=== PATIENT | female | born 1955 | race Caucasian/White ===

== ENCOUNTER 2019-05-24 06:37 | Day surgery (SDC) | payer MEDICAID ==
[2019-05-24] MEDS ORDERED: ONDANSETRON 4 MG/2 ML INJ IV PRN (06:56)
[2019-05-24] MEDS ORDERED: fentaNYL 100 MCG/2 ML INJ IV PRN (06:56)
--- NOTE | 2019-05-24 06:57 | Anesthesia Day of Surgery ---
Anesthesia Day of Surgery - Day of Surgery Patient Examined: Yes Patient H&P Reviewed: Yes Patient is NPO: Yes
[2019-05-24] MEDS ORDERED: SODIUM CHLORIDE 0.9% 500 ML 500 ML IV SCH (07:00)
[2019-05-24] MEDS ORDERED: LACTATED RINGERS 1,000 ML IV SCH (07:00)
--- NOTE | 2019-05-24 07:02 | Anesthesia Consultation ---
Anesthesia Consult and Med Hx Date of service: 05/24/19 - Airway Anesthetic Teeth Evaluation: Good - Pulmonary Exam CTA: Yes - Cardiac Exam Cardiac Exam: RRR - Pre-Operative Health Status ASA Pre-Surgery Classification: ASA3 Proposed Anesthetic Plan: MAC (recent lap courtney and sedation with angiogram with no anesthesia problem. No CP No SOB) - Pulmonary Hx Sleep Apnea: Yes (Pt denies but morbid obesity) - Cardiovascular System Hx Hypertension: Yes Hx Peripheral Vascular Disease: Yes - Endocrine Hx Non-Insulin Dependent Diabetes: Yes
[2019-05-24 07:19] LABS: Hematocrit 40.2 % (30.3-42.9); Hemoglobin 13.5 gm/dl (10.1-14.3); Mean Corpuscular HGB Conc 34 % (30-34); Mean Corpuscular Volume 83 fl (79-97); Platelet Count 432 K/mm3 (140-440); Red Blood Count 4.84 M/mm3 (3.65-5.03); Red Cell Distribution Width 14.9 % (13.2-15.2)
[2019-05-24 07:30] LABS: BUN/Creatinine Ratio 34; Blood Urea Nitrogen 17 mg/dL (7-17); Calcium 10.5 mg/dL (8.4-10.2); Hemolysis Index 10
[2019-05-24 08:04] LABS: INR 1.24 (0.87-1.13)
[2019-05-24 08:05] LABS: Partial Thromboplastin Time 34.9 Sec. (24.2-36.6)
[2019-05-24] MEDS ORDERED: KETAMINE/STERILE WATER 50 MG/ML SYRINGE ONE ×2 (08:14→10:37)
[2019-05-24] MEDS ORDERED: SODIUM CHLORIDE 0.9% 100 ML ONE (08:14)
[2019-05-24] MEDS ORDERED: MIDAZOLAM 2 MG/2 ML INJ ONE (08:15)
[2019-05-24] MEDS ORDERED: LIDOCAINE (2%) 20 MG/1 ML VIAL 20 ML MDV INFILTRATI ONE (08:27)
[2019-05-24] MEDS ORDERED: HEPARIN/NS 5000 UNIT/500ML 1,500 ML IR ONE (08:27)
[2019-05-24] MEDS ORDERED: ceFAZolin/Water 2 GM/20 ML 2 GM/20 ML SYRINGE IV ONE (08:44)
[2019-05-24] MEDS: HEPARIN 10,000 UNITS/10 ML VIAL ONE ×3 (09:04→10:03)
[2019-05-24] MEDS ORDERED: HEPARIN/NS 5000 UNIT/500ML 500 ML IR ONE (09:23)
[2019-05-24] MEDS ORDERED: SODIUM CHLORIDE 0.9% 1000 ML 1,000 ML ONE ×2 (09:32→10:26)
[2019-05-24] MEDS ORDERED: ALTEPLASE 2 MG INJ ONE (10:26)
[2019-05-24] MEDS ORDERED: NITROGLYCERIN SYRINGE 3 ML ONE (10:59)
[2019-05-24] MEDS ORDERED: PHENYLEPHRINE/NS 1,000 MCG/10 ML SYRINGE (OR USE) IV ONE (11:00)
[2019-05-24] MEDS ORDERED: hydrALAZINE 20 MG/1 ML INJ ONE (11:00)
--- NOTE | 2019-05-24 11:42 | Short Stay Summary ---
Short Stay Documentation Date of service: 05/24/19 - History H&P: obtained from office (Left toe ischemia) Past Medical History: diabetes, hyperlipidemia Past Surgical History: cholecystectomy - Allergies and Medications Current Medications: Allergies No Known Allergies Allergy (Unverified 05/24/19 06:38) Home Medications Medication Instructions Recorded Confirmed Last Taken Type Apixaban [Eliquis] 10 mg PO BID 05/24/19 05/24/19 05/23/19 History 10 mg RX: glipiZIDE [Glucotrol] 10 mg PO BID 05/24/19 05/24/19 05/23/19 History 10 mg RX: hydroCHLOROthiazide [HCTZ] 25 mg PO DAILY 05/24/19 05/24/19 05/23/19 History 25 mg RX: metFORMIN [Glucophage] 500 mg PO BID 05/24/19 05/24/19 05/23/19 History 500 mg Active Medications Fentanyl (Sublimaze) 50 mcg IV Q5MIN PRN PRN Reason: Pain , Severe (7-10) Stop: 05/24/19 23:00 Sodium Chloride (Nacl 0.9% 500 Ml) 500 mls @ 50 mls/hr IV DIRECT UMA Last Admin: 05/24/19 07:10 Dose: 50 mls/hr Documented by: Lactated Ringer's (Lactated Ringers) 1,000 mls @ 100 mls/hr IV DIRECT UMA Ondansetron HCl (Zofran) 4 mg IV ONCE PRN PRN Reason: Nausea And Vomiting Stop: 05/24/19 16:00 - Physical exam General appearance: no acute distress HEENT: PERRLA Lungs: Clear to auscultation Breasts: deferred Heart: Regular rate Gastrointestinal: normal Rectal Exam: deferred Extremities: abnormal (Non palpable posterior tibial and dorsalis pedis on the left. Dopplerable DP on the left. Mottled appearance to the left great toe. ) - Brief post op/procedure progress note Date of procedure: 05/24/19 Pre-op diagnosis: Left toe ischemia. Rest pain Post-op diagnosis: same Procedure: Left lower extermity arteriogram Revascularization of the left SFA with thrombectomy, atherectomy and stent placement. Anesthesia: MAC Findings: Occluded left SFA with single vessel run-off (AT) Placed Left SFA stent x 2 Surgeon: JOSH MATIAS Estimated blood loss: minimal Pathology: none Condition: stable - Disposition Condition at discharge: Good Disposition: DC-01 TO HOME OR SELFCARE Short Stay Discharge Plan Follow up with: PRIMARY CARE, [Primary Care Provider] - 7 Days
[2019-05-24] MEDS ORDERED: MORPHINE 2 MG/1 ML INJ ONE (11:53)
[2019-05-24] MEDS ORDERED: MORPHINE 4 MG/1 ML INJ IV PRN (12:44)
[2019-05-24] MEDS ORDERED: MORPHINE 2 MG/1 ML INJ IV SCH (13:00)
--- NOTE | 2019-05-24 13:38 | Post Anesthesia Evaluation ---
- Post Anesthesia Evaluation Patient Participated: Yes Airway Patent: Yes Stable Respiratory Function: Yes Nausea/Vomiting: No Temp > 96.8F: Yes Pain Manageable: Yes Adequeate Hydration: Yes Anesthesia Complications: No Block Receding Appropriately: Not Applicable Patient on Ventilator: No
[2019-05-24 15:54] VITALS: BP 126/68
--- NOTE | 2019-05-26 06:02 | Operative Report ---
PROCEDURE: Left lower extremity arteriogram with left SFA thrombectomy and atherectomy. Left SFA stent placement. INDICATION: Left toe ischemia and left lower extremity rest pain. PHYSICIAN: Dr. Johnson ANESTHESIA: MAC provided by anesthesia service. CONTRAST: 1. A 150 mL of Visipaque. 2. Heparin 6000 units IV. 3. Nitroglycerin 200 mcg. 4. TPA 4 mg. PROCEDURE TECHNIQUE: Following informed and written consent, the patient was taken to the angiographic suite and placed supine and the right groin was prepped and draped in the usual sterile fashion. Lidocaine was used for local anesthetic. Using ultrasound guidance and micropuncture access set was utilized to access the right common femoral artery and a 5-Cam[place]onian vascular sheath was inserted. A Glidewire was advanced into the abdominal aorta and a RIM catheter was utilized to cross over to the contralateral side and this was exchanged for a 4 Cam[place]onian vertebral catheter, which was advanced and positioned within the left common femoral artery. Left lower extremity arteriogram was performed using DSA imaging and a power injector. Subsequently, an Amplatz stiff guidewire was advanced through the vertebral catheter and the catheter was removed and the 5-Cam[place]onian sheath exchanged for a 7-Cam[place]onian crossover sheath, which was positioned within the common femoral artery. A 0.018-inch V18 guidewire was advanced into the SFA and then with the vertebral catheter through the area of occlusion into the popliteal artery. The guidewire was then removed and a SpiderFX embolic protection device was deployed in the popliteal artery. At this point, an AngioJet thrombectomy device was utilized to remove thrombus within the occluded segment of the SFA. Contrast was then injected using hand injection and DSA imaging. Subsequently, a 2.4 mm Jetstream atherectomy device was utilized across the area of occlusion. Then, a 5 x 220 mm balloon was utilized to dilate the superficial femoral artery. Post-balloon DSA imaging was obtained through the crossover sheath. At this point, I elected to place 2 stents within the superficial femoral artery. Two 6 x 120 Sol[place]ad stents were deployed from the adductor hiatus to the proximal SFA. These were then dilated with 5 mm balloons following deployment. DSA contrast imaging was then obtained, which demonstrated residual thrombus distally. At this point, the AngioJet catheter was then advanced distally to the distal SFA and proximal popliteal artery and residual thrombus was removed. A 6-Cam[place]onian guiding catheter was then exchanged for the AngioJet and the embolic protection device and guiding catheter were removed following capture of the protection device. Final DSA hand injections were obtained of the left lower extremity to the level of the foot. I elected to terminate the procedure at this point. The crossover sheath was then exchanged for a 7-Cam[place]onian short sheath. ACT was then obtained and the patient was taken to the outpatient procedure unit for recovery and sheath removal. Sheath was removed and manual compression applied until adequate hemostasis was achieved. The patient tolerated the procedure well with no immediate complications and was discharged following an adequate recovery time. FINDINGS: The patient has a known occlusion of the superficial femoral artery from previous ultrasound imaging. The left lower extremity arteriogram demonstrated occlusion of the left superficial femoral artery from proximal to distal, just above the adductor hiatus and approximately 5 cm below the origin of the SFA. The profunda femoris artery is widely patent. There is extensive collateralization which reconstitutes the distal SFA. The popliteal artery is widely patent. There is a single vessel runoff, which is the anterior tibial artery, which supplies the majority of the flow to the foot. A small diseased peroneal artery proximally is present. No visible posterior tibial artery is present. There is collateralization distally with some flow in the PT distribution without significant reconstitution of the plantar arteries. There is a mixed thrombus and plaque within the superficial femoral artery. Following AngioJet, there was some removal of thrombus. Following atherectomy, there was removal of chronic thrombus and plaque. Following balloon angioplasty, there remained significant narrowing throughout the superficial femoral artery. Proximally and at the origin, it is patent. Following stent placement and post-stent placement balloon dilatation, there was a good angiographic result. There was no residual thrombus identified. We had established inline flow to the anterior tibial artery. There is improved flow to the foot and great toe. IMPRESSION 1. 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 2. Single vessel runoff, which is the anterior tibial artery and dorsalis pedis. 3. Establishment of inline flow with successful thrombectomy, atherectomy and stent placement in the left superficial femoral artery. 4. The patient will be continued on Eliquis as prior to the procedure. 5. The patient will follow up with us in 2 weeks, and I have instructed her daughter to follow up with the referring accounting intern as scheduled. JOB# [id number] NILSON/DON LEACH
== END 2019-05-24 15:55 | disposition home or self-care (01) ==
LOC: CATHLABREC 06:37
PROVIDERS: ATTEND Radiology Vascular & Interventional Radiology
DX: I70.322 Atherosclerosis of unspecified type of bypass graft(s) of the extremities with rest pain, left leg (principal); E78.00 Pure hypercholesterolemia, unspecified; I10 Essential (primary) hypertension; G47.30 Sleep apnea, unspecified; E11.51 Type 2 diabetes mellitus with diabetic peripheral angiopathy without gangrene; Z79.899 Other long term (current) drug therapy; Z79.84 Long term (current) use of oral hypoglycemic drugs; Z90.49 Acquired absence of other specified parts of digestive tract; Z90.710 Acquired absence of both cervix and uterus; Z98.890 Other specified postprocedural states
CPT/HCPCS: 36415; 37184; 37185; 37227; 75710; 76937; 80048; 85027; 85347; 85610; 85730; C1724; C1725; C1757; C1769; C1874; C1884; C1887; J0360; J0690; J1644; J2250; J2270; J2370; J2405; J2704; J2997; J7030; J7040; 96374; 96375; 96376; Q9967